=== PATIENT | female | born 1990 | race African-American/Black ===

== ENCOUNTER 2016-11-02 16:42 | Emergency (ER) | payer OTHER, MEDICAID ==
[~2016-11-02 16:42] MED LIST: ALBUTEROL17 GM; BENADRYL; PREDNISONE PO; ZYRTEC-D T1 TAB.SR1 PO
[2016-11-02] MEDS ORDERED: PRENATA CHEWAB1 EAC1 (16:48)
[2016-11-02] MEDS ORDERED: LISINOPRIL (16:48)
[2016-11-02 17:02] LABS: URINE SOURCE CLEAN CATCH
[2016-11-02 17:06] LABS: URINE APPEARANCE CLEAR; URINE BILIRUBIN NEG (NEG); URINE BLOOD NEG (NEG); URINE COLOR YELLOW; URINE GLUCOSE NEG (NORM); URINE KETONE NEG (NEG); URINE LEUKOCYTE ESTERASE NEG (NEG); URINE NITRATE NEG (NEG); URINE PH 6.5 (5-8); URINE SPECIFIC GRAVITY 1.025 (1.003-1.035)
[2016-11-02 17:07] LABS: MICRO INDICATED? NO; URINE PROTEIN NEG (NEG)
[2016-11-07 01:45] LABS: CHLAMYDIA TRACH Not Detected (Not Detected); N GONOR Not Detected (Not Detected)
== END 2016-11-02 17:50 | disposition home or self-care (01) ==
LOC: SED 16:42
PROVIDERS: Nurse Practitioner Family
DX: O23.592 Infection of other part of genital tract in pregnancy, second trimester (principal); N76.0 Acute vaginitis; B96.89 Other specified bacterial agents as the cause of diseases classified elsewhere; Z3A.17 17 weeks gestation of pregnancy; Z88.0 Allergy status to penicillin
CPT/HCPCS: 81003; 84703; 87210; 87491; 87591; 87808; 87905; 99283